=== PATIENT | female | born 1990 | race African-American/Black ===

== ENCOUNTER 2016-11-07 16:51 | Inpatient (IN) ==
[2016-11-07 17:37] LABS: Apearance,Urine CLEAR (Clear); Bilirubin,Urine Negative (Negative); Blood, Urine Negative (Negative); Glucose,Urine (UA) Negative (Negative); Ketones,Urine Negative (Negative); Mucus,Urine Occasional /LPF (Occasional); Nitrite,Urine Negative (Negative); Protein,Urine Negative; RBC,Urine 3 /HPF (0-4); Squamous Epithelial Cell,Urine Occasional /HPF (0-10); Urine Color Yellow (Yellow); Urine Specific Gravity 1.011 (1.001-1.035); Urine Urobilinogen < 2.0 EU/DL (0.2-1.0); WBC,Urine 2 /HPF (0-6)
[2016-11-07] MEDS ORDERED: MEPERIDINE 50 MG/1 ML VIAL IV PRN (17:57)
[2016-11-07] MEDS ORDERED: ONDANSETRON 4 MG/2 ML VIAL IV PRN ×2 (17:57→23:26)
[2016-11-07] MEDS ORDERED: PROMETHAZINE 25 MG/1 ML VIAL IM PRN (17:59)
[2016-11-07] MEDS ORDERED: LACTATED RINGERS 1,000 ML IV ONE (17:59)
[2016-11-07] MEDS ORDERED: hydrOXYzine HCL 25 MG/1 ML VIAL IM PRN (17:59)
[2016-11-07] MEDS ORDERED: fentaNYL 2 MCG/ROPIV 0.2% EPID 150 ML EPIDURAL SCH (17:59)
[2016-11-07] MEDS ORDERED: CITRIC ACID/SODIUM CITRATE 30 ML UDCUP PO ONE (17:59)
[2016-11-07] MEDS ORDERED: diphenhydrAMINE 50 MG/1 ML VIAL IV PRN (17:59)
[2016-11-07] MEDS ORDERED: FAMOTIDINE 20 MG/2 ML VIAL IV ONE (17:59)
[2016-11-07] MEDS ORDERED: ePHEDrine 50 MG/ML AMP IV PRN (17:59)
[2016-11-07] MEDS ORDERED: OXYTOCIN/LR 20 UNIT/1,000 ML BAG IV SCH (18:00)
[2016-11-07 18:31] LABS: Basophils % 0.2 % (0.0-0.8); Eosinophils # 0.2 10*3/uL (0.0-0.87); Eosinophils % 1.5 % (0.00-10.9); Hematocrit 37.3 VOL% (35.7-47.0); Hemoglobin 12.3 GM/DL (12.0-16.0); Immature Granulocytes % 0.4 %; Immature Granulocytes Absolute 0.04 #; Lymphocytes # 2.2 10*3/uL (1.4-4.0); Lymphocytes % 20.9 % (21.3-54.2); Mean Corpuscular Hemoglobin 30 PG (27-34); Mean Corpuscular Volume 91.6 FL (87-102); Monocytes % 9.9 % (1.7-12.7); Neutrophils % 67.1 % (38.7-73.9); Platelet Count 193 T/CUMM (130-400); Red Blood Count 4.07 MC/CUMM (3.8-5.5); Red Cell Distribution Width 13.8 % (9.3-17.3); White Blood Count 10.5 T/CUMM (4-12)
[2016-11-07] MEDS: LACTATED RINGERS 1,000 ML IV SCH ×2 (18:32→19:05)
[2016-11-07 18:46] LABS: Albumin 2.5 G/DL (3.4-5.0); Bilirubin,Total 0.5 MG/DL (0.2-1.0); Calcium 8.2 MG/DL (8.5-10.1); Osmolality,Calculated 277.1 MOS/KG (273-304); Potassium 3.8 MMOL/L (3.5-5.1); Total Protein 5.9 G/DL (6.4-8.3)
--- NOTE | 2016-11-07 23:22 | OB/GYN History & Physical ---
History of Present Illness Chief complaint: labor History of present illness: Ms. Friedman is a 26 year old female at 38 1/7 weeks who presented to L&D this evening in early labor. Complaints of contractions all day. on admission. uneventful. Previous term delivery. Home Medications Medication Instructions Recorded Confirmed Type Vits #90/Iron Fum/FA 1 tablet PO DAILY 11/02/16 11/07/16 History [ Formula Tablet] Nitrofurantoin Macro/[place] 100 mg PO BID 11/07/16 11/07/16 History [Macrobid] Allergies Allergy/AdvReac Type Severity Reaction Status Date / Time No Known Allergies Allergy Verified 10/28/14 18:48 Medical,Surgical,& Family Hx - Medical History Cardio: No history of: Hypertension Endocrine: No history of: Diabetes Mellitus (IDDM), Diabetes Mellitus (NIDDM) Respiratory: No history of: Bronchitis, Pneumonia Renal: No history of: Renal Problems Gastrointestinal: No history of: Gastrointestinal Bleed, Liver Problems, GI Problems - Surgical History HEENT Surgeries: Surgical HX of: Tonsilectomy & Adenoidectomy - Family History Family History: Reports;: Family Diabetes (NEPHEW, FATHER'S SIDE OF FAMILY), Family Hypertension (MOM, MGM) Denies;: Family Anesthesia Reaction, Family Cancer, Family Heart Disease, Family Psychiatric Problems, Family Stroke - Social History Smoking Status: Never smoker Frequency of Alcohol Use: None Type of Drug Use: None Exam [employer] - Constitutional Vitals: Vital Signs Temp Pulse Resp BP 11/07/16 20:00 97 F L 74 16 121/70 General appearance: no acute distress - Head Head exam: Present: normocephalic - Eye Eye exam: Present: EOMI Pupils: Present: MIKE - Respiratory Respiratory exam: Present: clear to auscultation bilaterally - Cardiovascular Cardiovascular exam: Present: regular rate and rhythm - GI/Abdominal GI/Abdominal exam: Present: other (FHT reassuring. 3 minute decelaration ~ 30 minutes prior to delivery with recovery) Assessment and Plan (1) 38 weeks gestation of Status: Acute Assessment and plan: Anticipate Current Visit: Yes (2) Active labor Status: Acute Current Visit: Yes Results - Labs CBC & BMP: 11/07/16 18:11 11/07/16 18:11
--- NOTE | 2016-11-07 23:25 | Event Note ---
DELIVERY NOTE of male infant in HANNAH position over intact perineum with epidural anesthesia. Pt complete and delivered in 30 minutes. FHTs reassuring throughout process of pushing. Pushed for ~ 20 minutes. 7 lbs 14 oz. APGARS 8/9. EBL 300 cc. Spontaneous intact placenta. NICU present for delivery. Mom and baby doing well.
[2016-11-07] MEDS ORDERED: RHO(D) IMMUNE GLOBULIN 300 MCG SYRINGE IM ONE (23:26)
[2016-11-07] MEDS ORDERED: WITCH HAZEL PADS 100/JAR TOP PRN (23:26)
[2016-11-07] MEDS ORDERED: BENZOCAINE 20%/MENTHOL 0.5% SPRAY 56 GM CAN TOP PRN (23:26)
[2016-11-07] MEDS ORDERED: ACETAMINOPHEN 325 MG TABLET PO PRN (23:26)
[2016-11-07] MEDS ORDERED: BISACODYL 10 MG SUPP RECTAL PRN (23:26)
[2016-11-07] MEDS ORDERED: LANOLIN 50% CREAM 0.3 OZ TUBE TOP PRN (23:26)
[2016-11-07] MEDS ORDERED: DIPH/TET/ACEL PERT BOOSTER VACCINE 0.5 ML VIAL IM ONE (23:26)
[2016-11-07] MEDS ORDERED: HYDROCORTISONE 2.5% RECTAL CREAM 30 GM TUBE TOP PRN (23:26)
[2016-11-07] MEDS ORDERED: MEASLES/MUMPS/RUBELLA VACCINE 0.5 ML VIAL SUBCUT ONE (23:26)
[2016-11-07] MEDS ORDERED: OXYTOCIN/LR 20 UNIT/1,000 ML BAG IV ONE (23:26)
[2016-11-08] MEDS: IBUPROFEN 800 MG TABLET PO PRN ×3 (00:18→21:10)
[2016-11-08 06:08] LABS: Basophils % 0.2 % (0.0-0.8); Eosinophils # 0.1 10*3/uL (0.0-0.87); Eosinophils % 0.4 % (0.00-10.9); Hematocrit 31.9 VOL% (35.7-47.0); Hemoglobin 10.8 GM/DL (12.0-16.0); Immature Granulocytes % 0.6 %; Immature Granulocytes Absolute 0.09 #; Lymphocytes # 1.9 10*3/uL (1.4-4.0); Mean Corpuscular HGB Conc 33.9 GM/DL (32-36); Mean Corpuscular Hemoglobin 30 PG (27-34); Mean Corpuscular Volume 89.9 FL (87-102); Mean Platelet Volume 10.7 FL (9.6-12.0); Monocytes # 1.7 10*3/uL (0.11-0.8); Monocytes % 10.5 % (1.7-12.7); Neutrophils # 12.2 10*3/uL (1.4-7.4); Neutrophils % 76.3 % (38.7-73.9); Platelet Count 150 T/CUMM (130-400); Red Blood Count 3.55 MC/CUMM (3.8-5.5); Red Cell Distribution Width 13.8 % (9.3-17.3)
--- NOTE | 2016-11-08 07:06 | Anesthesia Post-Op ---
Anesthesia Post OP - Post Ansesthetic Evaluation Patient seen in post op: Yes Resp: within normal limits CV: within normal limits Mental: within normal limits Temp: within normal limits Dbad-[id number]-[id number]: within normal limits Nausea and Vomiting: within normal limits Pain: within normal limits
[2016-11-08] MEDS: NITROFURANTOIN MACRO/MONO 100 MG CAPSULE PO SCH ×2 (09:28→21:10)
[2016-11-08] MEDS: DOCUSATE SODIUM 100 MG CAPSULE PO SCH ×2 (09:28→21:10)
--- NOTE | 2016-11-08 17:06 | Progress Note ---
Family Medicine PN Sub Interval history: Status post vaginal delivery at 38 weeks 1 day. Patient is doing well, no shortness of breath chest pain or palpitations. Abdomen soft, uterus is firm, no excessive vaginal bleeding. Extremities well with no limits and neurologic grossly intact. Assessment plan status post vaginal will possibly discharge in a.m. Exam (Progress Note) - Constitutional Vitals: Period Temp Pulse Resp BP Sys/[place] Pulse Ox Last 24 Hr 96.9 F-97.8 F 58-86 16-20 96-137/55-90 97-100 Results - Labs CBC & BMP: 11/08/16 06:01 11/07/16 18:11 Specialty Discharge - Follow Up or Referrals
[2016-11-08] MEDS ORDERED: ONDANSETRON 4 MG TABLET PO PRN (20:06)
[2016-11-09] MEDS ORDERED: oxyCODONE/ACETAMINOPHEN 5-325 MG TABLET PO PRN (01:17)
[2016-11-09] MEDS: IBUPROFEN 800 MG TABLET PO PRN (04:52)
[2016-11-09] MEDS: DOCUSATE SODIUM 100 MG CAPSULE PO SCH (08:25)
[2016-11-09] MEDS: NITROFURANTOIN MACRO/MONO 100 MG CAPSULE PO SCH (08:25)
[2016-11-09 11:33] VITALS: BP 120/78
--- NOTE | 2016-11-09 15:11 | Discharge Summary ---
Hospital Course - Hospital Course Hospital Course: Ms. Friedman presented to the labor department in active labor. She subsequently delivered a viable infant with no complications. She has followed a normal course and she has done well. Her bleeding is minimal with no odor. She is voiding without difficulty. Her vital signs and lab values are stable. She is bonding well with her infant. She denies any calf or leg pain. She will be discharged home with prescriptions for pain and a follow-up appointment in our office. Specialty Discharge - Follow Up or Referrals Follow up with: Teena Conde MD [Physician] - 12/14/16 10:00 am (6 week follow-up appointment) Discharge Plan - Discharge Data Disposition: Disch To Home/Self Care Condition at Discharge: Stable Discharge Diet: advance to your usual diet Activity: resume usual activities as tolerated Hygiene: no restrictions, may shower Weight Bearing at Discharge: weight bear as tolerated Contact your physician if you experience:: fever over 101, pain uncontrolled by pain medications - Discharge Medications New Nitrofurantoin Macro/[place] [Macrobid] 100 mg PO BID #14 capsule Acetamin/Codeine 300-30 Tab [Tylenol/Codeine #3] 2 tablet PO Q4H PRN #30 tablet PRN Reason: Pain Mild To Moderate (1-7) Ibuprofen Tab [Motrin Tab] 800 mg PO Q6H PRN #30 tablet PRN Reason: Pain Moderate (4-7) Discontinued Nitrofurantoin Macro/[place] [Macrobid] 100 mg PO BID No Action Vits #90/Iron Fum/FA [ Formula Tablet] 1 tablet PO DAILY - Follow Up or Referral Follow Up: Teena Conde MD [Physician] - 12/14/16 10:00 am (6 week follow-up appointment) - Forms/Instructions Instructions: Depression (GEN), Perineal Care (DC), Vaginal Delivery (DC), Bleeding (DC) Exam - Constitutional Vitals: Period Temp Pulse Resp BP Sys/[place] Pulse Ox Last 24 Hr 97.3 F-97.9 F 62-90 16-20 97-123/51-80 96-100 General appearance: no acute distress - Head Head exam: Present: normal inspection - ENT ENT exam: Present: normal exam - Respiratory Respiratory exam: Present: clear to auscultation bilaterally - Cardiovascular Cardiovascular exam: Present: regular rate and rhythm - GI/Abdominal GI/Abdominal exam: Present: normal bowel sounds, soft - Extremities Exam Extremities exam: Present: normal inspection - Back Exam Back exam: Present: normal inspection - Neurological Exam Neurological exam: Present: alert, oriented X3 - Psychiatric Psychiatric exam: Present: normal affect, normal mood - Skin Skin exam: Present: normal color, warm DS: Provider Date of admission: 11/07/16 17:57 Primary care physician: . No PCP Attending physician on admission: Bella Baker MD Consults: 11/07/16 23:27 Consult to Appliance Worker [CONS] Routine Consult Appliance Worker: Breast Feeding Discharging clinician: Mirtha Whitney CNM Expected date of discharge: 11/09/16
== END 2016-11-09 15:00 | disposition home or self-care (01) | DRG 775 ==
LOC: N.LDOUT 16:51 → N.LD 16:52 → N.OB 11-08 00:51
PROVIDERS: ADMIT Obstetrics & Gynecology; ATTEND Obstetrics & Gynecology

== ENCOUNTER 2018-03-23 00:03 | Observation (INO) ==
[2018-03-23] MEDS ORDERED: SODIUM CHLORIDE 0.9% 1,000 ML IV STA (01:14)
[2018-03-23] MEDS ORDERED: BISACODYL 10 MG SUPP RECTAL PRN (01:15)
[2018-03-23] MEDS ORDERED: ONDANSETRON 4 MG/2 ML VIAL IV PRN (01:15)
[2018-03-23] MEDS ORDERED: IBUPROFEN 800 MG TABLET PO PRN (01:15)
[2018-03-23] MEDS ORDERED: MAGNESIUM HYDROXIDE SUSP 30 ML UDCUP PO PRN (01:15)
[2018-03-23] MEDS ORDERED: ACETAMINOPHEN 325 MG TABLET PO PRN (01:15)
[2018-03-23] MEDS ORDERED: OXYTOCIN/D5LR 20 UNIT/1,000 ML PREMIX IV ONE (01:17)
[2018-03-23 01:21] LABS: Basophils % 0.6 % (0.0-0.8); Eosinophils # 0.3 10*3/uL (0.0-0.87); Eosinophils % 4.4 % (0.00-10.9); Hemoglobin 12.4 GM/DL (12.0-16.0); Immature Granulocytes % 0.1 %; Immature Granulocytes Absolute 0.01 #; Lymphocytes # 2.9 10*3/uL (1.4-4.0); Lymphocytes % 40.9 % (21.3-54.2); Mean Corpuscular HGB Conc 32.6 GM/DL (32-36); Mean Corpuscular Hemoglobin 30 PG (27-34); Mean Corpuscular Volume 92.7 FL (87-102); Mean Platelet Volume 9.5 FL (9.6-12.0); Monocytes # 0.7 10*3/uL (0.11-0.8); Monocytes % 9.8 % (1.7-12.7); Neutrophils # 3.1 10*3/uL (1.4-7.4); Neutrophils % 44.2 % (38.7-73.9); Platelet Count 243 T/CUMM (130-400); Red Cell Distribution Width 13.3 % (9.3-17.3); White Blood Count 7.1 T/CUMM (4-12)
[2018-03-23 01:26] LABS: INR 0.9
[2018-03-23] MEDS ORDERED: LACTATED RINGERS 1,000 ML IV SCH (01:30)
[2018-03-23 01:33] LABS: Albumin 3.5 G/DL (3.4-5.0); Bilirubin,Total 0.7 MG/DL (0.2-1.0); Calcium 8.7 MG/DL (8.5-10.1); Osmolality,Calculated 282.1 MOS/KG (273-304); Potassium 3.1 MMOL/L (3.5-5.1); Total Protein 6.7 G/DL (6.4-8.3)
[2018-03-23] MEDS: MEPERIDINE 50 MG/1 ML VIAL IV PRN ×2 (02:26→06:06)
[2018-03-23] MEDS ORDERED: DOCUSATE SODIUM 100 MG CAPSULE PO SCH (09:00)
[2018-03-23] MEDS ORDERED: OXYTOCIN 30 UNIT in DEXTROSE 5% LACTATED RINGERS 1,000 ML IV ONE (11:06)
[2018-03-23] MEDS ORDERED: fentaNYL 100 MCG/2 ML VIAL ONE (11:09)
[2018-03-23] MEDS ORDERED: ONDANSETRON 4 MG/2 ML VIAL ONE (11:09)
[2018-03-23] MEDS ORDERED: MIDAZOLAM 2 MG/2 ML VIAL ONE (11:09)
[2018-03-23] MEDS ORDERED: PROPOFOL 200 MG/20 ML VIAL IV ONE (11:09)
[2018-03-23] MEDS ORDERED: DEXAMETHASONE 10 MG/1 ML VIAL ONE (11:09)
[2018-03-23] MEDS ORDERED: SEVOFLURANE 1 UNIT/15 MINUTE INH ONE (11:09)
[2018-03-23] MEDS ORDERED: LACTATED RINGERS 1,000 ML IV ONE (11:10)
[2018-03-23] MEDS ORDERED: OXYTOCIN/LR 30 UNIT/1,000 ML BAG IV ONE (11:17)
[2018-03-23] MEDS ORDERED: oxyCODONE/ACETAMINOPHEN 5-325 MG TABLET PO PRN (14:51)
[2018-03-23 16:33] VITALS: BP 110/75
== END 2018-03-23 15:30 | disposition home or self-care (01) ==
LOC: N.ED 00:03 → N.EDINP 00:03 → N.OB 01:39
PROVIDERS: ADMIT Obstetrics & Gynecology; ATTEND Obstetrics & Gynecology

== ENCOUNTER 2022-05-11 05:51 | Inpatient (IN) ==
[2022-05-11] MEDS ORDERED: CARBOPROST TROMETHAMINE 250 MCG/ML AMP IM PRN (05:58)
[2022-05-11] MEDS ORDERED: miSOPROStoL 200 MCG TABLET RECTAL PRN (05:58)
[2022-05-11] MEDS ORDERED: ONDANSETRON 4 MG/2 ML VIAL IV PRN (05:58)
[2022-05-11] MEDS ORDERED: TRANEXAMIC ACID 1,000 MG in SODIUM CHLORIDE 0.9% 100 ML IV PRN (05:58)
[2022-05-11] MEDS ORDERED: OXYTOCIN/LR 20 UNIT/1,000 ML BAG IV ONE ×2 (05:58→16:29)
[2022-05-11] MEDS ORDERED: METHYLERGONOVINE 0.2 MG/1 ML AMP IM PRN (05:58)
[2022-05-11] MEDS ORDERED: BUTORPHANOL 2 MG/ML VIAL IV PRN (05:58)
[2022-05-11] MEDS ORDERED: MEPERIDINE 25 MG/1 ML VIAL IV PRN (06:10)
[2022-05-11] MEDS: LACTATED RINGERS 1,000 ML IV SCH ×2 (06:36→09:26)
[2022-05-11] MEDS ORDERED: OXYTOCIN/LR 30 UNIT/1,000 ML BAG IV ONE (06:41)
[2022-05-11 06:47] LABS: Protein,Urine 30 mg/dL (Negative); Squamous Epithelial Cell,Urine Moderate /HPF (0-10); Urine Appearance Slightly Cloudy (Clear); Urine Color Yellow (Yellow); Urine Specific Gravity > 1.030 (1.001-1.035); Urine pH 6.5 (4.5-8.0)
[2022-05-11 06:48] LABS: Bilirubin,Urine Negative (Negative); Blood, Urine Negative (Negative); Glucose,Urine (UA) Negative (Negative); Ketones,Urine 15 mg/dL (Negative); Nitrite,Urine Negative (Negative)
[2022-05-11 06:49] LABS: Basophils % 0.4 % (0.0-0.8); Eosinophils # 0.2 10*3/uL (0.0-0.87); Eosinophils % 2.5 % (0.00-10.9); Hematocrit 41.1 VOL% (35.7-47.0); Hemoglobin 13.9 GM/DL (12.0-16.0); Immature Granulocytes % 0.3 %; Immature Granulocytes Absolute 0.02 #; Lymphocytes # 2.4 10*3/uL (1.4-4.0); Mean Corpuscular HGB Conc 33.8 GM/DL (32-36); Mean Corpuscular Volume 91.3 FL (87-102); Mean Platelet Volume 10.1 FL (9.6-12.0); Monocytes # 0.7 10*3/uL (0.11-0.8); Monocytes % 9.1 % (1.7-12.7); Neutrophils % 55.7 % (38.7-73.9); Platelet Count 271 T/CUMM (130-400); Red Cell Distribution Width 14.1 % (9.3-17.3); White Blood Count 7.3 T/CUMM (4-12)
[2022-05-11] MEDS ORDERED: NALOXONE 0.4 MG/ML VIAL IV PRN (06:58)
[2022-05-11] MEDS ORDERED: hydrOXYzine HCL 25 MG/1 ML VIAL IM PRN (06:58)
[2022-05-11] MEDS ORDERED: LACTATED RINGERS 1,000 ML IV ONE (06:58)
[2022-05-11] MEDS ORDERED: ePHEDrine 50 MG/ML VIAL IV PRN (06:58)
[2022-05-11] MEDS ORDERED: diphenhydrAMINE 50 MG/1 ML VIAL IV PRN ×2 (06:58)
[2022-05-11] MEDS ORDERED: FAMOTIDINE 20 MG/2 ML VIAL IV ONE (06:58)
[2022-05-11] MEDS ORDERED: CITRIC ACID/SODIUM CITRATE 30 ML UDCUP PO ONE (06:58)
[2022-05-11] MEDS ORDERED: PROMETHAZINE 25 MG/1 ML VIAL IM ONE (06:58)
[2022-05-11] MEDS ORDERED: fentaNYL 2 MCG/ROPIV 0.2% EPID 100 ML EPIDURAL SCH (07:00)
[2022-05-11] MEDS ORDERED: LACTATED RINGERS 1,000 ML IV SCH ×2 (07:00)
[2022-05-11] MEDS ORDERED: OXYTOCIN/LR 20 UNIT/1,000 ML BAG IV SCH (07:00)
[2022-05-11 07:17] LABS: Albumin 2.7 G/DL (3.4-5.0); Bilirubin,Total 0.5 MG/DL (0.20-1.00); Calcium 8.4 MG/DL (8.5-10.1); Osmolality,Calculated 278.3 MOS/KG (273-304); Potassium 3.3 MMOL/L (3.5-5.1); Total Protein 7.1 G/DL (6.4-8.2)
[2022-05-11 15:27] LABS: Cord Venous Blood PO2 23.2
[2022-05-11] MEDS ORDERED: oxyCODONE/ACETAMINOPHEN 5-325 MG TABLET PO PRN (16:29)
[2022-05-11] MEDS ORDERED: ACETAMINOPHEN 325 MG TABLET PO PRN (16:29)
[2022-05-11] MEDS ORDERED: WITCH HAZEL PADS 100/JAR TOP PRN (16:29)
[2022-05-11] MEDS ORDERED: LANOLIN 50% CREAM 0.3 OZ TUBE TOP PRN (16:29)
[2022-05-11] MEDS ORDERED: DIPH/TET/ACEL PERT BOOSTER VACCINE 0.5 ML VIAL IM ONE (16:29)
[2022-05-11] MEDS ORDERED: BENZOCAINE 20%/MENTHOL 0.5% SPRAY 56 GM CAN TOP PRN (16:29)
[2022-05-11] MEDS ORDERED: MEASLES/MUMPS/RUBELLA VACCINE 0.5 ML VIAL SUBCUT ONE (16:29)
[2022-05-11] MEDS ORDERED: BISACODYL 10 MG SUPP RECTAL PRN (16:29)
[2022-05-11] MEDS ORDERED: RHO(D) IMMUNE GLOBULIN 300 MCG SYRINGE IM ONE (16:29)
[2022-05-11] MEDS ORDERED: HYDROCORTISONE 2.5% RECTAL CREAM 30 GM TUBE TOP PRN (16:29)
[2022-05-11] MEDS: POTASSIUM CHLORIDE 20 MEQ TABLET PO PRN ×3 (17:09→21:46)
[2022-05-11] MEDS: IBUPROFEN 800 MG TABLET PO PRN (17:12)
[2022-05-11] MEDS: DOCUSATE SODIUM 100 MG CAPSULE PO SCH (20:47)
[2022-05-11] MEDS: oxyCODONE/ACETAMINOPHEN 5-325 MG TABLET PO PRN (21:49)
[2022-05-12 06:24] LABS: Basophils % 0.1 % (0.0-0.8); Eosinophils # 0.3 10*3/uL (0.0-0.87); Eosinophils % 1.8 % (0.00-10.9); Hematocrit 35.7 VOL% (35.7-47.0); Hemoglobin 11.8 GM/DL (12.0-16.0); Immature Granulocytes % 0.4 %; Immature Granulocytes Absolute 0.06 #; Lymphocytes # 2.5 10*3/uL (1.4-4.0); Lymphocytes % 18.6 % (21.3-54.2); Mean Corpuscular HGB Conc 33.1 GM/DL (32-36); Mean Platelet Volume 10.1 FL (9.6-12.0); Monocytes # 1.1 10*3/uL (0.11-0.8); Monocytes % 8.1 % (1.7-12.7); Platelet Count 224 T/CUMM (130-400); Red Blood Count 3.88 MC/CUMM (3.8-5.5); Red Cell Distribution Width 14.2 % (9.3-17.3); White Blood Count 13.6 T/CUMM (4-12)
[2022-05-12] MEDS: DOCUSATE SODIUM 100 MG CAPSULE PO SCH ×2 (08:14→21:24)
[2022-05-12] MEDS: IBUPROFEN 800 MG TABLET PO PRN ×2 (08:16→21:29)
[2022-05-12] MEDS: oxyCODONE/ACETAMINOPHEN 5-325 MG TABLET PO PRN (09:24)
[2022-05-13 07:17] VITALS: BP 139/67
[2022-05-13] MEDS: DOCUSATE SODIUM 100 MG CAPSULE PO SCH (08:59)
[2022-05-13] MEDS: IBUPROFEN 800 MG TABLET PO PRN (09:01)
== END 2022-05-13 14:45 | disposition home or self-care (01) | DRG 807 ==
LOC: N.LD 05:51 → N.OB 16:41
PROVIDERS: ADMIT Obstetrics & Gynecology; ATTEND Obstetrics & Gynecology